=== PATIENT | male | born 1980 | race Caucasian/White ===

== ENCOUNTER 2020-09-10 02:31 | Emergency (ER) | payer SELFPAY ==
[~2020-09-10] VITALS: Ht 180.3 cm; Wt 106.0 kg
[2020-09-10 02:31] VITALS: BP 130/90
[2020-09-10] MEDS ORDERED: KETOROLAC 60 MG/2 ML VIAL. IM ONE (02:45)
[2020-09-10] MEDS ORDERED: MELO15TA23 PO (02:45)
[2020-09-10] MEDS ORDERED: CYCL10TA2 PO (02:45)
[2020-09-10] MEDS ORDERED: ORPHENADRINE CITRATE 60 MG/2 ML VIAL. IM ONE (02:45)
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
[2020-09-10] MEDS ORDERED: oxyCODONE/APAP 5/325 1 TAB TABLET PO ONE (03:45)
== END 2020-09-10 03:43 | disposition home or self-care (01) ==
LOC: ER 02:31
DX: M54.6 Pain in thoracic spine (principal)
CPT/HCPCS: 96372; 99284; J1885; J2360